=== PATIENT | male | born 1990 | race Two or more races ===

== ENCOUNTER 2016-10-25 15:05 | Emergency (ER) | payer MEDICAID, OTHER, SELFPAY ==
[~2016-10-25] VITALS: Ht 172.7 cm; Wt 73.0 kg
[2016-10-25] MEDS ORDERED: PLEASE ENTER ALLERGIES MC SCH ×2 (16:00)
[2016-10-25] MEDS ORDERED: ONDANSETRON 2MG/ML, 2ML IVPush ONE (16:00)
[2016-10-25] MEDS ORDERED: SODIUM CHLORIDE 0.9% 1,000ML IVBOLUS ONE (16:00)
[2016-10-25] MEDS ORDERED: SODIUM CHLORIDE FLUSH 10ML SYR IVF ONE (16:00)
[2016-10-25] MEDS ORDERED: FAMOTIDINE 20 MG/2 ML IVP ONE (16:00)
[2016-10-25] MEDS ORDERED: MORPHINE SULFATE 4 MG/ML, 1ML IVPush PRN (16:00)
[2016-10-25] MEDS ORDERED: MORPHINE SULFATE 4 MG/ML, 1ML ONE (16:08)
[2016-10-25 16:09] LABS: ASPARTATE AMINO TRANSFERASE 24 U/L (15-37); BLOOD UREA NITROGEN 13 mg/dL (7-18)
[2016-10-25] MEDS ORDERED: ONDANSETRON 2MG/ML, 2ML ONE (16:09)
[2016-10-25] MEDS ORDERED: FAMOTIDINE 20 MG/2 ML ONE (16:09)
[2016-10-25 16:26] VITALS: BP 135/88
== END 2016-10-25 17:04 | disposition home or self-care (01) ==
LOC: ED 16:57
DX: K27.3 Acute peptic ulcer, site unspecified, without hemorrhage or perforation (principal); B96.81 Helicobacter pylori [H. pylori] as the cause of diseases classified elsewhere; R10.13 Epigastric pain
CPT/HCPCS: 36415; 74022; 76700; 80053; 83690; 85025; 86677; 96361; 96374; 96375; 99285; J2405; J7030; S0028